=== PATIENT | female | born 1960 | race Caucasian/White ===

== ENCOUNTER 2023-07-07 19:40 | Outpatient (CLI) | payer OTHER, SELFPAY ==
--- NOTE | 2023-07-11 08:48 | W.PM.SLEEP ---
Sleep Study Details Details Interpreting Provider: Ewelina Date of Sleep Study: 07/07/23 Sleep Study Details: STUDY TYPE:? Home unattended ? BMI:? 25.5 ORDERING PROVIDER:Karlee Theodore INDICATION:? Concerns about sleep apnea ? SLEEP SUMMARY:? 481 minutes monitored RESPIRATORY SUMMARY:? AHI 11.6 per CMS guidelines, 16.2 per rule 1A/3% Low oxygen 83 2.1% of study oxygen less than 90% No significant snoring was observed PERIODIC LIMB MOVEMENTS OF SLEEP:? Not recorded during home study CARDIAC:? Range 57-107, mean 70.1 IMPRESSION:? Mild to moderate obstructive sleep apnea with significant desaturation RECOMMENDATION: Treatment options include CPAP AutoSet 4-17, dental appliance and/or airway expansion surgery.
== END 2023-07-07 19:41 | disposition home or self-care (01) ==
LOC: SLEEP 19:42
PROVIDERS: Visit Provider Otolaryngology
DX: G47.33 Obstructive sleep apnea (adult) (pediatric) (principal)
CPT/HCPCS: 95806